=== PATIENT | female | born 1940 | race Two or more races ===

== ENCOUNTER 2023-08-20 14:05 | Inpatient (IN) | payer SELFPAY ==
[~2023-08-20] VITALS: Ht 154.9 cm; Wt 62.9 kg
[2023-08-20 15:06] LABS: Hematocrit 28.7 % (36.0-46.0); Hemoglobin 9.2 g/dL (12.2-16.2); Mean Corpuscular Hemoglobin 27.1 pg (28.0-32.0); Mean Corpuscular Hgb Conc. 31.9 g/dL (32.0-36.0); Mean Corpuscular Volume 85.1 fL (80.0-100.0); Red Blood Cells 3.37 10^6/uL (4.0-5.20); Red Cell Distribution Width 13.6 % (11.8-14.3); White Blood Cell 28.5 10^3/uL (4.4-10.8)
[2023-08-20 15:14] LABS: Basophils % (manual) 0 (0.0-2.0); Blast Cells 0; Eosinophils % (manual) 0 (0-7); Metamyelocytes % 0; Myelocytes % 0; Promyelocytes % 0; Reactive Lymphocytes 0
[2023-08-20 15:19] LABS: Band Neutrophils % (manual) 2; Lymphocytes % (manual) 3 (10.0-50.0); Monocytes % (manual) 4 (0-12); Platelet Estimate Adequate; RBC Morphology Normal
[2023-08-20 15:22] LABS: Alanine Aminotransferase 16 U/L (7-40); Albumin 3.7 g/dL (3.2-4.8); Alkaline Phosphatase 98 U/L (46-116); Anion Gap 10 (5-15); Aspartate Aminotransferase 28 U/L (13-40); BUN/Creatinine Ratio 14.5 (10.0-20.0); Blood Urea Nitrogen 32 mg/dL (9-23); Calcium 8.8 mg/dL (8.5-10.1); Carbon Dioxide 16 mmol/L (20-30); Chloride 102 mmol/L (98-107); Glucose 180 mg/dL (74-106); Sodium 128 mmol/L (136-145)
[2023-08-20 15:23] LABS: Bilirubin, Total 0.6 mg/dL (0.2-1.0); Total Protein 6.8 g/dL (5.7-8.2)
[2023-08-20 15:35] LABS: Potassium 5.6 mmol/L (3.5-5.1)
[2023-08-20] MEDS ORDERED: VANCOMYCIN PER PHARMACY 0 MG IV SCH ×2 (15:45→18:30)
[2023-08-20] MEDS: HEPARIN SODIUM (PORCINE) 5000 UNITS/ML 1ML VIAL IV ONE (16:00)
[2023-08-20] MEDS: ASPirin 81 mg TAB PO ONE (16:00)
[2023-08-20] MEDS: SODIUM BICARB 8.4% 50Meq/50ml SYR INJ IV ONE (16:00)
[2023-08-20] MEDS: ALBUTEROL SULF 2.5 MG/0.5ML(0.5%) NEB SOLN ONE (16:30)
[2023-08-20 16:34] LABS: Lactic Acid w/Reflex 2.2 mmol/L (0.4-2.0)
[2023-08-20 16:38] LABS: Magnesium 1.2 mg/dL (1.6-2.6)
[2023-08-20] MEDS: PIPERACILLIN-TAZOB 3.375GM 100 ML IV ONE (16:55)
[2023-08-20] MEDS: SODIUM CHLORIDE 0.9% 1,000 ML IV ONE ×2 (16:56→18:07)
[2023-08-20] MEDS: SODIUM ZIRCONIUM CYCL 10 GM PAK PO ONE ×2 (17:03→21:55)
[2023-08-20] MEDS: NOREPINEPHRINE 8 MG/250ML KIT 250 ML IV SCH (17:53)
[2023-08-20] MEDS: VANCOMYCIN 1GM/200ML 200 ML IV ONE (18:06)
[2023-08-20] MEDS: DEXTROSE (50%) 50ML SYRG IV ONE (18:07)
[2023-08-20] MEDS: InsuLIN REG 1unit/0.01ml Soln (100units/ml) IV ONE (18:11)
[2023-08-20] MEDS ORDERED: HYDROmorphone HCL 2 MG/ML VL/or syr IV PRN (18:15)
[2023-08-20] MEDS ORDERED: NITROGLYCERIN 0.4 MG SL TAB SL PRN (18:15)
[2023-08-20] MEDS ORDERED: MORPHINE SULFATE INJ 2 MG/ml SYRG IV PRN (18:15)
[2023-08-20] MEDS ORDERED: HYDROcodone-ACET 5/325MG TAB PO PRN (18:15)
[2023-08-20] MEDS ORDERED: ONDANSETRON HCL 4 MG/2 ML VIAL IV PRN (18:15)
[2023-08-20] MEDS ORDERED: DOCUSATE SOD 100 MG CAP PO PRN (18:15)
[2023-08-20] MEDS: HEPARIN DRIP/D5W 100UNITS/ML 250 ML IV SCH (18:53)
[2023-08-20 19:30] VITALS: PULSE 128; RESP 20; O2SAT 100
[2023-08-20 19:37] LABS: Chloride 105 mmol/L (98-107); Potassium 4.8 mmol/L (3.5-5.1); Sodium 128 mmol/L (136-145)
[2023-08-20 19:39] LABS: Calcium 7.8 mg/dL (8.7-10.4)
[2023-08-20 19:41] LABS: INR 1.31 (0.9-1.15); Prothrombin Time 13.5 sec (9.3-11.8)
[2023-08-20 19:43] LABS: Glucose 210 mg/dL (74-106)
[2023-08-20 19:44] LABS: BUN/Creatinine Ratio 11.7 (10.0-20.0); Blood Urea Nitrogen 27 mg/dL (9-23)
[2023-08-20 19:46] VITALS: PULSE 130; RESP 20; O2SAT 96
[2023-08-20 19:55] LABS: Anion Gap 11 (5-15); Carbon Dioxide 12 mmol/L (20-30)
[2023-08-20] MEDS: SODIUM CHLOR 0.9% PF (SALINE LOCK) 10ML VIAL/SYR IV SCH (21:56)
[2023-08-20] MEDS: MAGNESIUM OXIDE 400 MG TAB PO ONE (21:56)
[2023-08-20] MEDS: ATORVASTATIN 20 MG TAB PO SCH (21:59)
[2023-08-20] MEDS: PIPERACILLIN-TAZOB 3.375GM 100 ML IV SCH (21:59)
[2023-08-20] MEDS: ALBUTEROL SULF 2.5 MG/0.5ML(0.5%) NEB SOLN NEB ONE (22:19)
[2023-08-21 01:09] LABS: INR 1.24 (0.9-1.15); Partial Thromboplastin Time 40.8 SEC (24.5-34.5); Prothrombin Time 12.8 sec (9.3-11.8)
[2023-08-21] MEDS ORDERED: DEXTROSE (50%) 50ML SYRG IV PRN (02:30)
[2023-08-21] MEDS: HEPARIN DRIP/D5W 100UNITS/ML 250 ML IV SCH ×2 (02:32→09:24)
[2023-08-21] MEDS: ACCU-CHEK COMFORT CURVE STRIP VI SCH (06:57)
[2023-08-21] MEDS: InsuLIN REG 1unit/0.01ml Soln (100units/ml) SC SCH ×2 (07:05→23:02)
[2023-08-21 08:00] VITALS: PULSE 104; RESP 16; O2SAT 100
[2023-08-21 08:29] LABS: Basophils # (auto) 0.1 10 ^3/uL (0-0.2); Basophils % (auto) 0.2 % (0.0-2.0); Mean Corpuscular Hemoglobin 26.8 pg (28.0-32.0); Mean Corpuscular Volume 84.4 fL (80.0-100.0); Monocytes # (auto) 1.2 10 ^3/uL (0-1.3); Red Cell Distribution Width 13.8 % (11.8-14.3)
[2023-08-21 08:31] LABS: Eosinophils # (auto) 0.1 10 ^3/uL (0-0.8); Eosinophils % (auto) 0.4 % (0.0-7.0); Hematocrit 27.2 % (36.0-46.0); Hemoglobin 8.6 g/dL (12.2-16.2); Lymphocytes # (auto) 1.3 10 ^3/uL (0.4-5.4); Lymphocytes % (auto) 4.7 % (10.0-50.0); Mean Corpuscular Hgb Conc. 31.7 g/dL (32.0-36.0); Monocytes % (auto) 4.3 % (0.0-12.0); Neutrophils # (auto) 24.4 10 ^3/uL (1.6-8.6); Neutrophils % (auto) 90.4 % (37.0-80.0); Red Blood Cells 3.22 10^6/uL (4.0-5.20)
[2023-08-21 09:00] LABS: Urine Bacteria FEW /hpf (None Seen); Urine Blood TRACE /uL (Negative); Urine Clarity HAZY (Clear); Urine Color Yellow (Yellow); Urine Protein, UAD TRACE (Negative); Urine Specific Gravity 1.011 (1.001-1.035); Urine Urobilinogen Normal (Negative); Urine WBC 6 /hpf (0 - 5); Urine pH 5.5 (5.0-8.0)
[2023-08-21] MEDS: VANCOMYCIN 1GM/200ML 200 ML IV ONE (09:40)
[2023-08-21] MEDS: ASPirin 81 mg TAB PO SCH (11:33)
[2023-08-21 14:59] LABS: COVID19 ANTIGEN SOFIA FIA NEGATIVE (NEGATIVE)
[2023-08-21 19:33] LABS: Chloride 106 mmol/L (98-107); Potassium 4.4 mmol/L (3.5-5.1); Sodium 131 mmol/L (136-145)
[2023-08-21 19:34] LABS: Anion Gap 9 (5-15); Carbon Dioxide 16 mmol/L (20-30)
[2023-08-21 19:35] LABS: Calcium 8.4 mg/dL (8.5-10.1)
[2023-08-21 19:39] LABS: Glucose 100 mg/dL (74-106)
[2023-08-21 19:40] LABS: BUN/Creatinine Ratio 14.4 (10.0-20.0); Blood Urea Nitrogen 24 mg/dL (9-23)
[2023-08-21 20:00] VITALS: PULSE 95; RESP 16; O2SAT 100
[2023-08-22 03:54] LABS: Chloride 107 mmol/L (98-107); Potassium 4.2 mmol/L (3.5-5.1); Sodium 132 mmol/L (136-145)
[2023-08-22 03:55] LABS: Anion Gap 7 (5-15); Calcium 7.9 mg/dL (8.7-10.4); Carbon Dioxide 18 mmol/L (20-30)
[2023-08-22 04:00] LABS: BUN/Creatinine Ratio 19.5 (10.0-20.0); Blood Urea Nitrogen 30 mg/dL (9-23); Glucose 150 mg/dL (74-106)
[2023-08-22 04:11] LABS: INR 1.19 (0.9-1.15); Partial Thromboplastin Time 63.7 SEC (24.5-34.5); Prothrombin Time 12.4 sec (9.3-11.8)
[2023-08-22] MEDS: VANCOMYCIN 1GM/200ML 200 ML IV SCH (10:11)
[2023-08-22] MEDS: PIPERACILLIN-TAZOB 3.375GM 100 ML IV SCH (10:12)
[2023-08-22 11:37] LABS: INR 1.26 (0.9-1.15)
[2023-08-22 18:03] LABS: INR 1.19 (0.9-1.15); Prothrombin Time 12.4 sec (9.3-11.8)
[2023-08-22 18:05] LABS: Partial Thromboplastin Time 73.2 SEC (24.5-34.5)
[2023-08-22 19:30] VITALS: PULSE 91; RESP 16; O2SAT 98
[2023-08-23] VITALS (7 sets, daily range): BP systolic 99–120; BP diastolic 43–58; PULSE 70–103; RESP 17–20; TEMP 98.2–99.9; O2SAT 93–98
[2023-08-23 14:30] LABS: Chloride 108 mmol/L (98-107); Potassium 4.1 mmol/L (3.5-5.1); Sodium 133 mmol/L (136-145)
[2023-08-23 14:31] LABS: Anion Gap 8 (5-15); Calcium 8.1 mg/dL (8.5-10.1); Carbon Dioxide 17 mmol/L (20-30)
[2023-08-23 14:36] LABS: BUN/Creatinine Ratio 16.1 (10.0-20.0); Blood Urea Nitrogen 23 mg/dL (9-23); Glucose 141 mg/dL (74-106)
[2023-08-23 14:46] LABS: INR 1.25 (0.9-1.15); Partial Thromboplastin Time 32.4 SEC (24.5-34.5); Prothrombin Time 12.9 sec (9.3-11.8)
[2023-08-23] MEDS: ENOXAPARIN SOD 60 MG/0.6 ML SYRINGE SC SCH (17:33)
[2023-08-23] MEDS: PIPERACILLIN-TAZOB 3.375GM 100 ML IV SCH (22:02)
[2023-08-24] VITALS (9 sets, daily range): BP systolic 96–116; BP diastolic 51–64; PULSE 75–103; RESP 17–26; TEMP 97.8–98.9; O2SAT 94–100
[2023-08-24 04:54] LABS: Chloride 108 mmol/L (98-107); Potassium 4.1 mmol/L (3.5-5.1); Sodium 134 mmol/L (136-145)
[2023-08-24 04:55] LABS: Anion Gap 10 (5-15); Calcium 7.9 mg/dL (8.5-10.1); Carbon Dioxide 16 mmol/L (20-30)
[2023-08-24 05:00] LABS: BUN/Creatinine Ratio 16.8 (10.0-20.0); Blood Urea Nitrogen 27 mg/dL (9-23); Glucose 115 mg/dL (74-106)
[2023-08-24] MEDS: LACTATED RINGER'S 1,000 ML IV SCH (09:15)
[2023-08-24] MEDS ORDERED: MIDAZOLAM HCL 2MG/2ML 2ml VIAL (1mg/ml) ONE (11:00)
[2023-08-24] MEDS ORDERED: KETAMINE 50mg/ML 1ml syringe ONE (11:00)
[2023-08-24] MEDS ORDERED: PROPOFOL 10 MG/ML 20 ML IV ONE (11:01)
[2023-08-24] MEDS ORDERED: GLYCOPYRROLATE 0.2 MG/ML 1ML VIAL ONE (11:01)
[2023-08-24] MEDS ORDERED: ONDANSETRON HCL 4 MG/2 ML VIAL ONE (11:01)
[2023-08-24] MEDS: ACCU-CHEK COMFORT CURVE STRIP VI ONE (13:00)
[2023-08-24] MEDS ORDERED: HYDROmorphone HCL 2 MG/ML VL/or syr IV PRN (13:00)
[2023-08-24] MEDS: ALBUTEROL SULF 2.5 MG/0.5ML(0.5%) NEB SOLN NEB ONE (13:13)
[2023-08-24] MEDS: ACETAMINOPHEN IV 1000 MG/100ML (10MG/ML) IV ONE (14:28)
[2023-08-25] VITALS (8 sets, daily range): BP systolic 92–120; BP diastolic 54–82; PULSE 71–96; RESP 16–19; TEMP 97.3–98.2; O2SAT 93–98
[2023-08-25 07:10] LABS: Chloride 109 mmol/L (98-107); Potassium 4.7 mmol/L (3.5-5.1); Sodium 136 mmol/L (136-145)
[2023-08-25 07:11] LABS: Anion Gap 10 (5-15); Carbon Dioxide 17 mmol/L (20-30)
[2023-08-25 07:12] LABS: Calcium 7.9 mg/dL (8.5-10.1)
[2023-08-25 07:14] LABS: Basophils # (auto) 0 10 ^3/uL (0-0.2); Basophils % (auto) 0.1 % (0.0-2.0); Eosinophils # (auto) 0 10 ^3/uL (0-0.8); Hematocrit 26.1 % (36.0-46.0); Hemoglobin 8.5 g/dL (12.2-16.2); Lymphocytes # (auto) 0.6 10 ^3/uL (0.4-5.4); Lymphocytes % (auto) 3.7 % (10.0-50.0); Mean Corpuscular Hemoglobin 27.6 pg (28.0-32.0); Mean Corpuscular Hgb Conc. 32.5 g/dL (32.0-36.0); Monocytes # (auto) 0.6 10 ^3/uL (0-1.3); Monocytes % (auto) 3.7 % (0.0-12.0); Neutrophils # (auto) 13.8 10 ^3/uL (1.6-8.6); Neutrophils % (auto) 92.5 % (37.0-80.0); Red Blood Cells 3.07 10^6/uL (4.0-5.20); Red Cell Distribution Width 14.7 % (11.8-14.3); White Blood Cell 14.9 10^3/uL (4.4-10.8)
[2023-08-25 07:17] LABS: BUN/Creatinine Ratio 16.9 (10.0-20.0); Blood Urea Nitrogen 29 mg/dL (9-23); Glucose 222 mg/dL (74-106)
[2023-08-25] MEDS: ENOXAPARIN SOD 80 MG/0.8ML SYRINGE SC SCH (10:39)
[2023-08-25] MEDS: VANCOMYCIN 500 MG in D5W 5% 100 ML IV SCH (16:15)
[2023-08-25] MEDS: DAKINS HALF STR 0.25% (NaHypochlorite) 473 ML TOPICAL SOL TOP SCH (21:29)
[2023-08-26] VITALS (8 sets, daily range): BP systolic 93–132; BP diastolic 47–105; PULSE 64–105; RESP 16–20; TEMP 97.5–99.3; O2SAT 94–100
[2023-08-26 11:35] LABS: Calcium 7.7 mg/dL (8.5-10.1); Chloride 106 mmol/L (98-107); Potassium 4.1 mmol/L (3.5-5.1); Sodium 133 mmol/L (136-145)
[2023-08-26 11:37] LABS: Anion Gap 9 (5-15); Carbon Dioxide 18 mmol/L (20-30)
[2023-08-26 11:42] LABS: BUN/Creatinine Ratio 18.6 (10.0-20.0); Blood Urea Nitrogen 33 mg/dL (9-23); Glucose 120 mg/dL (74-106)
[2023-08-26] MEDS: BUPIVACAINE HCL 50 ML ONE (12:36)
[2023-08-26] MEDS: LIDOCAINE HCL (LOCAL ANESTH.) 0.5 % 50ML MDV IJ ONE (12:36)
[2023-08-26] MEDS: ALBUTEROL SULF 2.5 MG/0.5ML(0.5%) NEB SOLN NEB ONE (12:36)
[2023-08-27] VITALS (8 sets, daily range): BP systolic 96–127; BP diastolic 51–64; PULSE 77–103; RESP 18–19; TEMP 98.4–99.4; O2SAT 91–97
[2023-08-27 06:06] LABS: Basophils # (auto) 0 10 ^3/uL (0-0.2); Eosinophils # (auto) 0.3 10 ^3/uL (0-0.8); Hemoglobin 8.2 g/dL (12.2-16.2); Monocytes # (auto) 0.7 10 ^3/uL (0-1.3)
[2023-08-27 06:08] LABS: Basophils % (auto) 0.4 % (0.0-2.0); Eosinophils % (auto) 3.1 % (0.0-7.0); Mean Corpuscular Hemoglobin 27.4 pg (28.0-32.0); Mean Corpuscular Volume 83.2 fL (80.0-100.0); Monocytes % (auto) 7.5 % (0.0-12.0); Neutrophils # (auto) 7.5 10 ^3/uL (1.6-8.6); Red Cell Distribution Width 14.2 % (11.8-14.3); White Blood Cell 9.5 10^3/uL (4.4-10.8)
[2023-08-27 06:09] LABS: Anion Gap 9 (5-15); Carbon Dioxide 17 mmol/L (20-30); Chloride 107 mmol/L (98-107); Potassium 4.2 mmol/L (3.5-5.1); Sodium 133 mmol/L (136-145)
[2023-08-27 06:10] LABS: Calcium 7.4 mg/dL (8.7-10.4)
[2023-08-27 06:15] LABS: BUN/Creatinine Ratio 16.6 (10.0-20.0); Blood Urea Nitrogen 25 mg/dL (9-23); Glucose 116 mg/dL (74-106)
[2023-08-27] MEDS: guaiFENesin-DM 100/10mg/5ml SYR PO PRN (14:02)
[2023-08-28] VITALS (12 sets, daily range): BP systolic 130–147; BP diastolic 64–74; PULSE 78–94; RESP 16–19; TEMP 97.6–98.9; O2SAT 94–98
[2023-08-28 07:20] LABS: Basophils # (auto) 0 10 ^3/uL (0-0.2); Eosinophils # (auto) 0.2 10 ^3/uL (0-0.8); Lymphocytes # (auto) 1.1 10 ^3/uL (0.4-5.4); Mean Corpuscular Volume 83.5 fL (80.0-100.0); Monocytes # (auto) 0.5 10 ^3/uL (0-1.3); Nucleated Red Blood Cells % 0.1 %; Red Blood Cells 2.99 10^6/uL (4.0-5.20)
[2023-08-28 07:24] LABS: Basophils % (auto) 0.3 % (0.0-2.0); Eosinophils % (auto) 2.1 % (0.0-7.0); Hematocrit 24.9 % (36.0-46.0); Hemoglobin 8.2 g/dL (12.2-16.2); Lymphocytes % (auto) 11.5 % (10.0-50.0); Mean Corpuscular Hemoglobin 27.3 pg (28.0-32.0); Mean Corpuscular Hgb Conc. 32.7 g/dL (32.0-36.0); Monocytes % (auto) 5.7 % (0.0-12.0); Neutrophils # (auto) 7.5 10 ^3/uL (1.6-8.6); Neutrophils % (auto) 80.4 % (37.0-80.0); Red Cell Distribution Width 14.5 % (11.8-14.3); White Blood Cell 9.3 10^3/uL (4.4-10.8)
[2023-08-28 07:31] LABS: Anion Gap 8 (5-15); Carbon Dioxide 18 mmol/L (20-30); Chloride 107 mmol/L (98-107); Potassium 4.5 mmol/L (3.5-5.1); Sodium 133 mmol/L (136-145)
[2023-08-28 07:32] LABS: Calcium 7.4 mg/dL (8.7-10.4)
[2023-08-28 07:37] LABS: BUN/Creatinine Ratio 16.8 (10.0-20.0); Blood Urea Nitrogen 20 mg/dL (9-23); Glucose 110 mg/dL (74-106)
[2023-08-28] MEDS ORDERED: LORazepam 0.5 MG TAB PO PRN (13:00)
[2023-08-28] MEDS ORDERED: IPRATROPIUM BROM 0.5 MG/2.5ML INH SOL NEB PRN (13:00)
[2023-08-28] MEDS ORDERED: ALBUTEROL SULF 2.5 MG/0.5ML(0.5%) NEB SOLN NEB PRN (13:00)
[2023-08-29] VITALS (8 sets, daily range): BP systolic 116–146; BP diastolic 52–66; PULSE 74–94; RESP 18–20; TEMP 97.4–98.1; O2SAT 90–98
[2023-08-29 06:35] LABS: Basophils # (auto) 0 10 ^3/uL (0-0.2); Basophils % (auto) 0.4 % (0.0-2.0); Hemoglobin 8.2 g/dL (12.2-16.2); Lymphocytes # (auto) 1.3 10 ^3/uL (0.4-5.4); Monocytes # (auto) 0.6 10 ^3/uL (0-1.3); Nucleated Red Blood Cells % 0.1 %
[2023-08-29 06:37] LABS: Chloride 106 mmol/L (98-107); Potassium 4.2 mmol/L (3.5-5.1); Sodium 135 mmol/L (136-145)
[2023-08-29 06:38] LABS: Anion Gap 9 (5-15); Calcium 7.3 mg/dL (8.5-10.1); Carbon Dioxide 20 mmol/L (20-30); Eosinophils # (auto) 0.1 10 ^3/uL (0-0.8); Eosinophils % (auto) 1.5 % (0.0-7.0); Hematocrit 24.9 % (36.0-46.0); Lymphocytes % (auto) 14.3 % (10.0-50.0); Mean Corpuscular Hemoglobin 27.4 pg (28.0-32.0); Mean Corpuscular Hgb Conc. 32.9 g/dL (32.0-36.0); Mean Corpuscular Volume 83.4 fL (80.0-100.0); Monocytes % (auto) 6.5 % (0.0-12.0); Neutrophils # (auto) 7.2 10 ^3/uL (1.6-8.6); Neutrophils % (auto) 77.3 % (37.0-80.0); Red Blood Cells 2.98 10^6/uL (4.0-5.20); Red Cell Distribution Width 14.6 % (11.8-14.3); White Blood Cell 9.3 10^3/uL (4.4-10.8)
[2023-08-29 06:43] LABS: BUN/Creatinine Ratio 16.4 (10.0-20.0); Blood Urea Nitrogen 18 mg/dL (9-23); Glucose 98 mg/dL (74-106)
[2023-08-29] MEDS: ACETAMINOPHEN 325 MG TAB PO PRN (09:41)
[2023-08-29] MEDS: VANCOMYCIN 500 MG in D5W 5% 100 ML IV SCH (14:37)
[2023-08-30] VITALS (9 sets, daily range): BP systolic 113–142; BP diastolic 59–70; PULSE 78–93; RESP 17–22; TEMP 97.5–98.4; O2SAT 92–98
[2023-08-30 05:24] LABS: Basophils # (auto) 0 10 ^3/uL (0-0.2); Basophils % (auto) 0.3 % (0.0-2.0); Eosinophils # (auto) 0.3 10 ^3/uL (0-0.8); Eosinophils % (auto) 2.8 % (0.0-7.0); Hematocrit 25.6 % (36.0-46.0); Hemoglobin 8.6 g/dL (12.2-16.2); Lymphocytes # (auto) 1.4 10 ^3/uL (0.4-5.4); Lymphocytes % (auto) 14.9 % (10.0-50.0); Mean Corpuscular Hemoglobin 27.8 pg (28.0-32.0); Mean Corpuscular Hgb Conc. 33.5 g/dL (32.0-36.0); Monocytes # (auto) 0.6 10 ^3/uL (0-1.3); Monocytes % (auto) 5.9 % (0.0-12.0); Neutrophils # (auto) 7.2 10 ^3/uL (1.6-8.6); Neutrophils % (auto) 76.1 % (37.0-80.0); Red Blood Cells 3.08 10^6/uL (4.0-5.20); White Blood Cell 9.4 10^3/uL (4.4-10.8)
[2023-08-30 05:29] LABS: Anion Gap 7 (5-15); Calcium 7.4 mg/dL (8.7-10.4); Carbon Dioxide 21 mmol/L (20-30); Chloride 107 mmol/L (98-107); Potassium 3.9 mmol/L (3.5-5.1); Sodium 135 mmol/L (136-145)
[2023-08-30 05:35] LABS: BUN/Creatinine Ratio 13.3 (10.0-20.0); Blood Urea Nitrogen 15 mg/dL (9-23); Glucose 94 mg/dL (74-106)
[2023-08-30] MEDS: FUROSEMIDE 40 MG/4 ML VIAL IV ONE (11:54)
[2023-08-30] MEDS: VANCOMYCIN 1GM/200ML 200 ML IV ONE (19:59)
[2023-08-31] VITALS (9 sets, daily range): BP systolic 102–144; BP diastolic 50–73; PULSE 80–92; RESP 17–20; TEMP 97.4–98.2; O2SAT 93–98
[2023-08-31 06:39] LABS: Basophils # (auto) 0 10 ^3/uL (0-0.2); Basophils % (auto) 0.5 % (0.0-2.0); Eosinophils # (auto) 0.2 10 ^3/uL (0-0.8); Eosinophils % (auto) 3.3 % (0.0-7.0); Hematocrit 22.7 % (36.0-46.0); Hemoglobin 7.7 g/dL (12.2-16.2); Lymphocytes # (auto) 1.4 10 ^3/uL (0.4-5.4); Lymphocytes % (auto) 19.8 % (10.0-50.0); Mean Corpuscular Hemoglobin 28.2 pg (28.0-32.0); Mean Corpuscular Hgb Conc. 33.9 g/dL (32.0-36.0); Mean Corpuscular Volume 83.2 fL (80.0-100.0); Monocytes # (auto) 0.5 10 ^3/uL (0-1.3); Monocytes % (auto) 7.8 % (0.0-12.0); Neutrophils # (auto) 4.7 10 ^3/uL (1.6-8.6); Neutrophils % (auto) 68.6 % (37.0-80.0); Nucleated Red Blood Cells % 0.1 %; Red Blood Cells 2.72 10^6/uL (4.0-5.20); Red Cell Distribution Width 14.8 % (11.8-14.3); White Blood Cell 6.9 10^3/uL (4.4-10.8)
[2023-08-31 06:40] LABS: Chloride 107 mmol/L (98-107); Potassium 3.8 mmol/L (3.5-5.1); Sodium 136 mmol/L (136-145)
[2023-08-31 06:41] LABS: Anion Gap 7 (5-15); Carbon Dioxide 22 mmol/L (20-30)
[2023-08-31 06:42] LABS: Calcium 7.2 mg/dL (8.7-10.4)
[2023-08-31 06:46] LABS: Glucose 118 mg/dL (74-106)
[2023-08-31 06:47] LABS: Blood Urea Nitrogen 12 mg/dL (9-23)
[2023-08-31] MEDS ORDERED: IPRATROPIUM BROM 0.5 MG/2.5ML INH SOL NEB PRN (15:30)
[2023-08-31] MEDS ORDERED: ALBUTEROL SULF 2.5 MG/0.5ML(0.5%) NEB SOLN NEB PRN (15:30)
[2023-08-31] MEDS: FUROSEMIDE 40 MG/4 ML VIAL IV ONE (16:01)
[2023-08-31 22:10] LABS: Rapid Influenza A Negative (Negative); Rapid Influenza B Negative (Negative)
[2023-09-01] VITALS (11 sets, daily range): BP systolic 121–131; BP diastolic 58–69; PULSE 82–94; RESP 16–21; TEMP 97.5–98.2; O2SAT 95–99
[2023-09-02] VITALS (10 sets, daily range): BP systolic 123–133; BP diastolic 58–74; PULSE 77–98; RESP 16–18; TEMP 97.4–97.9; O2SAT 95–98
[2023-09-02] MEDS ORDERED: INSULIN LANTUS (GLARGINE) 1 /0.01ml (100units/ml) SC ONE (12:00)
[2023-09-02] MEDS ORDERED: INSULIN LANTUS (GLARGINE) 1 /0.01ml (100units/ml) SC SCH (22:00)
[2023-09-03 08:00] VITALS: PULSE 80; O2SAT 98
[2023-09-03 08:35] VITALS: BP 127/62; PULSE 80; RESP 17; TEMP 97.9; O2SAT 98
[2023-09-03 10:00] VITALS: O2SAT 98
[2023-09-03 13:22] VITALS: BP 136/71; PULSE 89; RESP 18; TEMP 98.4; O2SAT 94
[2023-09-03 16:50] VITALS: BP 136/71; PULSE 87; RESP 18; TEMP 98; O2SAT 94
[2023-09-03 20:00] VITALS: PULSE 72; RESP 17; O2SAT 98
[2023-09-04 05:00] VITALS: BP 124/65; PULSE 92; RESP 16; TEMP 98.2; O2SAT 97
[2023-09-04 09:00] VITALS: BP 111/56; PULSE 98; RESP 16; TEMP 97.9; O2SAT 98
[2023-09-04 10:00] VITALS: O2SAT 98
[2023-09-04] MEDS ORDERED: MICONAZOLE NITRATE 2 % VAGINAL CREAM 45 GM PV ONE (12:15)
[2023-09-04 13:00] VITALS: BP 119/61; PULSE 91; RESP 16; TEMP 97.8; O2SAT 99
[2023-09-04 17:00] VITALS: BP 131/66; PULSE 86; RESP 16; TEMP 97.9; O2SAT 100
[2023-09-04] MEDS: MICONAZOLE NITRATE 2 % VAGINAL CREAM 45 GM PV SCH (21:30)
[2023-09-04] MEDS: NYSTATIN TOPICAL CREAM 15GM TOP SCH (22:00)
[2023-09-04 22:01] VITALS: BP 116/63; PULSE 95; RESP 16; TEMP 98; O2SAT 98
[2023-09-05] VITALS (8 sets, daily range): BP systolic 109–127; BP diastolic 46–64; PULSE 84–96; RESP 15–18; TEMP 97.6–99; O2SAT 95–100
[2023-09-05 06:06] LABS: Potassium 4.4 mmol/L (3.5-5.1)
[2023-09-05 06:07] LABS: Calcium 7.8 mg/dL (8.7-10.4)
[2023-09-05 06:12] LABS: BUN/Creatinine Ratio 10.3 (10.0-20.0)
[2023-09-05 06:14] LABS: Phosphorus 2.8 mg/dL (2.4-5.1)
[2023-09-05] MEDS: VANCOMYCIN 500 MG in D5W 5% 100 ML IV SCH (17:50)
[2023-09-05] MEDS: FLUCONAZOLE 200MG/100ML 100 ML IV SCH (22:28)
[2023-09-06] VITALS (8 sets, daily range): BP systolic 111–126; BP diastolic 50–66; PULSE 69–95; RESP 16–18; TEMP 97.9–98.2; O2SAT 97–99
[2023-09-06] MEDS: NYSTATIN TOPICAL POWDER 15GM TOP SCH (22:02)
[2023-09-07] VITALS (8 sets, daily range): BP systolic 113–135; BP diastolic 53–69; PULSE 85–101; RESP 16–20; TEMP 97.4–98.3; O2SAT 93–99
[2023-09-07 06:27] LABS: Basophils # (auto) 0.1 10 ^3/uL (0-0.2); Eosinophils # (auto) 0.3 10 ^3/uL (0-0.8); Monocytes # (auto) 0.6 10 ^3/uL (0-1.3); Neutrophils # (auto) 4.8 10 ^3/uL (1.6-8.6); White Blood Cell 7.9 10^3/uL (4.4-10.8)
[2023-09-07 06:30] LABS: Basophils % (auto) 0.8 % (0.0-2.0); Eosinophils % (auto) 3.7 % (0.0-7.0); Hematocrit 24.4 % (36.0-46.0); Hemoglobin 7.9 g/dL (12.2-16.2); Lymphocytes # (auto) 2.1 10 ^3/uL (0.4-5.4); Lymphocytes % (auto) 26.4 % (10.0-50.0); Mean Corpuscular Hemoglobin 27.8 pg (28.0-32.0); Mean Corpuscular Hgb Conc. 32.1 g/dL (32.0-36.0); Mean Corpuscular Volume 86.4 fL (80.0-100.0); Monocytes % (auto) 7.9 % (0.0-12.0); Neutrophils % (auto) 61.2 % (37.0-80.0); Red Blood Cells 2.83 10^6/uL (4.0-5.20); Red Cell Distribution Width 15.6 % (11.8-14.3)
[2023-09-07 06:35] LABS: INR 1.13 (0.9-1.15); Partial Thromboplastin Time 35.1 SEC (24.5-34.5); Prothrombin Time 11.8 sec (9.3-11.8)
[2023-09-08 05:00] VITALS: BP 103/51; PULSE 76; RESP 17; TEMP 97.6; O2SAT 97
[2023-09-08 08:00] VITALS: RESP 16; O2SAT 99
[2023-09-08 09:00] VITALS: BP 125/60; PULSE 91; RESP 16; TEMP 98; O2SAT 100
[2023-09-08 10:00] VITALS: O2SAT 100
== END 2023-09-08 11:25 | disposition left against medical advice (07) | DRG 871 ==
LOC: ER 14:05 → TELE 17:32 → TELE-WESTW 08-22 23:33 → WEST WING 08-31 18:32
PROVIDERS: ADMIT Internal Medicine; ATTEND Internal Medicine
PROC: 0J9R0ZZ Drainage of Left Foot Subcutaneous Tissue and Fascia, Open Approach (ICD-10-PCS; principal; 2023-08-24 12:04)
DX: A41.9 Sepsis, unspecified organism (principal); G93.41 Metabolic encephalopathy; I21.A1 Myocardial infarction type 2; M72.6 Necrotizing fasciitis; N17.9 Acute kidney failure, unspecified; E87.20 Acidosis, unspecified; E87.1 Hypo-osmolality and hyponatremia; M86.8X7 Other osteomyelitis, ankle and foot; Z20.822 Contact with and (suspected) exposure to COVID-19; E87.5 Hyperkalemia; E11.65 Type 2 diabetes mellitus with hyperglycemia; E11.621 Type 2 diabetes mellitus with foot ulcer; D64.9 Anemia, unspecified; L97.529 Non-pressure chronic ulcer of other part of left foot with unspecified severity; E66.01 Morbid (severe) obesity due to excess calories; Z53.29 Procedure and treatment not carried out because of patient's decision for other reasons; I10 Essential (primary) hypertension; E11.69 Type 2 diabetes mellitus with other specified complication; E11.51 Type 2 diabetes mellitus with diabetic peripheral angiopathy without gangrene; E78.5 Hyperlipidemia, unspecified; Z68.26 Body mass index [BMI] 26.0-26.9, adult
CPT/HCPCS: 36415; 71045; 73630; 73700; 76775; 78582; 80048; 80053; 80061; 80069; 80202; 81001; 82565; 82962; 83036; 83605; 83735; 83880; 84132; 84443; 84484; 85007; 85025; 85027; 85379; 85610; 85730; 86850; 86900; 86901; 87040; 87070; 87075; 87077; 87186; 87205; 87426; 87804; 93005; 93306; 93970; 94640; 96361; 96365; 96375; 99291; G0378; J0131; J1450; J1815; J2250; J2405; J2543; J2704; J3490; J7060

== ENCOUNTER 2023-10-07 02:39 | Emergency (ER) | payer MEDICAID ==
[~2023-10-07] VITALS: Ht 170.2 cm; Wt 81.0 kg
[2023-10-07 02:40] VITALS: BP 0/0; PULSE 0; RESP 0; O2SAT 0
[2023-10-07] MEDS ORDERED: EPINEPHrine HCL 1 MG/10 ML SYRG IV ONE (02:40)
[2023-10-07] MEDS ORDERED: SODIUM BICARB 8.4% 50Meq/50ml SYR INJ IV ONE (02:40)
[2023-10-07] MEDS ORDERED: EPINEPHrine HCL 1 MG/10 ML SYRG ONE (02:51)
== END 2023-10-07 03:11 ==
LOC: ER 02:39 → EDBD 02:39 → ER 03:11
DX: I46.9 Cardiac arrest, cause unspecified (principal); I10 Essential (primary) hypertension; E11.9 Type 2 diabetes mellitus without complications
CPT/HCPCS: 92950; 99285; J0171